=== PATIENT | female | born 1980 | race Caucasian/White ===

== ENCOUNTER 2016-07-23 04:50 | Inpatient (IN) | payer BC, OTHER ==
[~2016-07-23] VITALS: Ht 165.1 cm; Wt 72.0 kg
[~2016-07-23 04:50] MED LIST: PREN1TAB60 PO; natural thyroid PO
[2016-07-23 05:00] VITALS: BP 139/81
[2016-07-23] MEDS ORDERED: LACTATED RINGERS 1,000 ML IV SCH (05:02)
[2016-07-23] MEDS ORDERED: OXYTOCIN 30U/ 0.9% NaCL 500ML 500 ML ONE (05:02)
[2016-07-23] MEDS ORDERED: OXYTOCIN 30U/ 0.9% NaCL 500ML 500 ML IV ONE (05:02)
[2016-07-23] MEDS ORDERED: NEWBORN KIT ONE (05:02)
[2016-07-23] MEDS ORDERED: D5%-LACTATED RINGERS 1,000 ML IV SCH (05:02)
[2016-07-23] MEDS ORDERED: CALCIUM CARBONATE 500 MG TAB.CHEW PO PRN (05:30)
[2016-07-23] MEDS ORDERED: FENTANYL PF 100 MCG/2ML IV PRN (05:30)
[2016-07-23] MEDS ORDERED: ONDANSETRON 2MG/ML, 2ML IVPush PRN (05:30)
[2016-07-23] MEDS ORDERED: FENTANYL PF 100 MCG/2ML IVPush PRN (05:30)
[2016-07-23] MEDS ORDERED: TERBUTALINE 1 MG/ML, 1ML IVPush PRN (05:30)
[2016-07-23] MEDS: OXYTOCIN 30U/ 0.9% NaCL 500ML 500 ML IV SCH ×2 (06:26→16:26)
[2016-07-23] MEDS ORDERED: ONDANSETRON 2MG/ML, 2ML IV PRN (06:30)
[2016-07-23] MEDS ORDERED: IBUPROFEN 600 MG TABLET PO PRN (06:30)
[2016-07-23] MEDS ORDERED: HYDROcodone/APAP 5/325 TABLET PO PRN ×2 (06:30)
[2016-07-23] MEDS ORDERED: DOCUSATE 100 MG CAPSULE PO PRN (06:30)
[2016-07-23] MEDS ORDERED: MISOPROSTOL 200 MCG TABLET PR PRN (06:30)
[2016-07-23 08:30] VITALS: BP 120/77
[2016-07-23] MEDS ORDERED: PRENATAL VIT/IRON/FA 1 EACH TABLET PO SCH (09:00)
[2016-07-23 11:28] VITALS: BP 116/73
[2016-07-23 15:26] LABS: ANISOCYTOSIS 1+; OVALOCYTES 1+; POLYCHROMASIA 1+
[2016-07-23 15:27] LABS: LARGE PLATELETS 1+
[2016-07-23 15:36] VITALS: BP 127/79
[2016-07-23 19:16] VITALS: BP 119/73
[2016-07-24 00:14] VITALS: BP 124/78
[2016-07-24] MEDS: OXYTOCIN 30U/ 0.9% NaCL 500ML 500 ML IV SCH (02:26)
[2016-07-24 04:16] VITALS: BP 112/75
[2016-07-24] MEDS ORDERED: MEASLES,MUMPS&RUBELLA VACC/PF 0.5 ML SQ-VACC ONE (06:30)
[2016-07-24 06:55] VITALS: BP 130/88
[2016-07-24] MEDS ORDERED: DOCU-30 PO (09:14)
[2016-07-24] MEDS ORDERED: [UNRECOGNIZED DRUG - CODE] PO (09:15)
[2016-07-24] MEDS ORDERED: IBUP-1222 PO (09:18)
== END 2016-07-24 12:47 | disposition home or self-care (01) | DRG 775 ==
LOC: LDOP 04:50 → LDIP 05:05 → 2NW 08:05
PROVIDERS: ADMIT Obstetrics & Gynecology; ATTEND Obstetrics & Gynecology
PROC: 10E0XZZ Delivery of Products of Conception, External Approach (ICD-10-PCS; principal; 2016-07-23)
DX: O62.3 Precipitate labor (principal); O71.82 Other specified trauma to perineum and vulva; Z37.0 Single live birth; Z3A.39 39 weeks gestation of pregnancy
CPT/HCPCS: 36415; 85025; 86850; 86900; J2590; J7120

== ENCOUNTER → 2019-04-30 | Outpatient (CLI) | payer BC ==
[~2019-04-30] MED LIST changes: +DOCU-131 PO; +IBUP-1222 PO; +IBUP100O32 PO
== END | disposition home or self-care (01) ==
LOC: CFH 10:13
PROVIDERS: ATTEND Family Medicine
DX: R92.2 Inconclusive mammogram (principal); N63.11 Unspecified lump in the right breast, upper outer quadrant
CPT/HCPCS: 76642; 77066; G0279

== ENCOUNTER 2019-09-03 13:19 | Outpatient (CLI) | payer BC | END 2019-09-03 23:59 | disposition home or self-care (01) | LOC: CFH 13:19 | PROVIDERS: ATTEND Family Medicine | DX: R92.2 Inconclusive mammogram (principal); N60.01 Solitary cyst of right breast | CPT/HCPCS: 76642; 77065; G0279 ==